=== PATIENT | female | born 2000 | race Caucasian/White ===

== ENCOUNTER 2024-11-21 18:25 | Emergency (ER) | payer OTHER, BC ==
[~2024-11-21] VITALS: Ht 170.2 cm; Wt 109.5 kg
[2024-11-21] MEDS ORDERED: TETRACAINE HCL 0.5% 4 ML BTL OD PRN (19:45)
[2024-11-21] MEDS ORDERED: MAXITROL EYE DRO5 ML OPTH (20:21)
[2024-11-21] MEDS ORDERED: DIPHTH,PERTUSS(ACELL),TET VAC 0.5 ML SYRINGE IM ONE (20:30)
[2024-11-21] MEDS ORDERED: NEOMYCIN/POLYMYXIN/DEXAMETH OPTH SUSPENSION BOTTLE OD ONE (20:30)
[2024-11-21 21:12] VITALS: BP 139/81
== END 2024-11-21 21:13 | disposition home or self-care (01) ==
LOC: ED 18:25
DX: T65.891A Toxic effect of other specified substances, accidental (unintentional), initial encounter (principal); S05.01XA Injury of conjunctiva and corneal abrasion without foreign body, right eye, initial encounter
CPT/HCPCS: 90471; 90715; 99283-25